=== PATIENT | male | born 1990 | race Two or more races ===

== ENCOUNTER 2025-02-01 20:44 | Emergency (ER) | payer OTHER ==
[~2025-02-01] VITALS: Ht 167.6 cm; Wt 81.8 kg
[2025-02-01 20:55] VITALS: TEMP 98.8
[2025-02-01 22:04] LABS: CALCIUM, TOTAL 8.2 mg/dL (8.8-10.5); CREATININE 1.06 mg/dL (0.60-1.30); GLOMERULAR FILTR. RATE CALC > 60 mL/min (>60); GLUCOSE,RANDOM 142 mg/dL (70-110); PLATELET COUNT (AUTO) 202 K/uL (150-450); RED BLOOD CELL COUNT(AUTO) 5.68 MIL/uL (4.50-5.90); RED CELL DISTRIBUTION WIDTH 13.0 % (11.5-14.5); SODIUM SERUM 140 mmol/L (136-145); UREA NITROGEN, BLOOD 15 mg/dL (7-18); WHITE BLOOD COUNT (AUTO) 8.0 K/uL (4.5-11.0)
[2025-02-01 22:08] VITALS: BP 132/95; PULSE 98; RESP 16; O2SAT 97
[2025-02-01 22:32] LABS: TROPONIN I-HIGH SENSITIVITY 20 ng/L (<76)
[2025-02-01 23:40] LABS: PH,URINE DRUG SCREEN 6.0 (5.0-8.0)
[2025-02-01 23:47] LABS: ALCOHOL, URINE DRUG SCREEN NEGATIVE (NEGATIVE); AMPHET/METH SCREEN,URINE NEGATIVE (NEGATIVE); BARBITURATE SCREEN, URINE NEGATIVE (NEGATIVE); CANNABINOID SCREEN,URINE NEGATIVE (NEGATIVE); COCAINE SCREEN,URINE NEGATIVE (NEGATIVE); METHADONE SCREEN, URINE NEGATIVE (NEGATIVE)
== END 2025-02-02 00:29 | disposition home or self-care (01) ==
LOC: EMS 20:44
DX: R07.89 Other chest pain (principal); F15.90 Other stimulant use, unspecified, uncomplicated
CPT/HCPCS: 80048; 80307; 84484; 85025; 93005; 99284